=== PATIENT | male | born 1945 | race Asian ===

== ENCOUNTER 2019-12-31 06:39 | Day surgery (SDC) | payer OTHER ==
[2019-12-30 10:04] VITALS: BMI 21.4
[2019-12-31] MEDS ORDERED: LIDOCAINE 1% P/F 10 MG/ML VIAL ONE (07:16)
[2019-12-31] MEDS ORDERED: TETRACAINE 0.5% OPHTH SOLN 2 ML BOTTLE ONE (07:17)
[2019-12-31] MEDS ORDERED: CARBACHOL 0.01% INTRA-OCULAR 1.5 ML VIAL ONE (07:17)
[2019-12-31] MEDS ORDERED: NEO/POLYMYX B SULF/DEXAMETH OPHTHALMIC 5ML BOTTLE ONE (07:17)
[2019-12-31] MEDS ORDERED: EPINEPHrine/PF 1 MG/1 ML (1:1,000) AMPULE ONE ×2 (07:17→07:28)
[2019-12-31] MEDS ORDERED: BSS (NA/CA/MG/K) BALANCED SALT SOLUTION OPHTH SOLN 15 ML BOTTLE ONE (07:17)
[2019-12-31] MEDS: CIPROFLOXACIN 0.3% EYE DROPS 5 ML BOTTLE ONE ×3 (07:30→07:40)
[2019-12-31] MEDS: PHENYLEPHRINE 2.5% OPHTH SOLN 15 ML BOTTLE ONE ×3 (07:30→07:40)
[2019-12-31] MEDS: TROPICAMIDE 1% OPHTH SOLN 15 ML BOTTLE ONE ×3 (07:30→07:40)
[2019-12-31] MEDS: CYCLOPENTOLATE 2% OPHTH SOLN 2 ML BOTTLE ONE ×3 (07:30→07:40)
[2019-12-31] MEDS ORDERED: MIDAZOLAM HCL 2 MG/2 ML SINGLE DOSE VIAL ONE (07:36)
[2019-12-31] MEDS ORDERED: ONDANSETRON 4 MG/2 ML VIAL ONE (08:13)
[2019-12-31 08:57] VITALS: TEMP 98
[2019-12-31 10:40] VITALS: BP 103/71; PULSE 64
--- NOTE | 2019-12-31 14:17 | OP ---
DATE OF OPERATION: 12/31/2019 OPERATIVE PROCEDURE: Lens Phacoemulsification with Posterior Chamber Intraocular Lens Placement, Right Eye PREOPERATIVE DIAGNOSIS: Visually Significant Cataract of Right Eye POSTOPERATIVE DIAGNOSIS: Visually Significant Cataract of Right Eye SURGEON: Michael Katz M.D. ANESTHESIA: MAC PROCEDURE: The patient was brought to the operating room and placed under monitored anesthesia care by Anesthesia. A drop of Tetracaine was then placed over the right eye. The patient was then prepped and draped in the usual sterile manner. A speculum was then placed over the right eye. The eye was then well irrigated with copious amounts of BSS (balanced salt solution). The operating microscope was then moved into position. A paracentesis was performed using a 15 degree blade. At this point 0.5 mL of 1% preservative free-lidocaine was injected into the anterior chamber. Amvisc plus was then injected into the anterior chamber. A clear corneal incision was then formed using a 2.2 mm keratome. A capsulorrhexis was then performed in a continuous circular fashion beginning with a cystotome completed with an Utratas forceps. Hydrodissection was then performed using BSS on a cannula. The phaco probe was then introduced through the corneal wound and the cataract was removed using the phaco chop technique. Approximately 3 seconds of absolute phaco time was used. The remaining cortex was then removed using irrigation and aspiration with an I/A probe. The capsule was then filled with regular Amvisc and the capsule was noted to be intact. A previously selected foldable posterior chamber intraocular lens was then injected into the capsule through the corneal wound using a lens injector. It was then dialed into position using a Sinskey hook. The Amvisc was then removed using irrigation and aspiration. Miostat was then injected through the paracentesis to constrict the pupil. The paracentesis and corneal wound were then hydrated and noted to be water tight. A drop of Maxitrol was then placed over the eye. The speculum was removed and clear shield was taped over the eye. The patient tolerated the procedure well and there were no surgical complications. The patient was asked to follow up in my office the next day. MICHAEL KATZ M.D. LUCAS/[id number]
== END 2019-12-31 09:30 | disposition home or self-care (01) ==
LOC: FASU 06:39
PROVIDERS: ATTEND Ophthalmology
PROC: 08RJ3JZ Replacement of Right Lens with Synthetic Substitute, Percutaneous Approach (ICD-10-PCS; principal; 2019-12-31 08:10)
DX: H26.8 Other specified cataract (principal)
CPT/HCPCS: 82962

== ENCOUNTER 2020-02-04 08:25 | Day surgery (SDC) | payer OTHER ==
--- OUTSIDE RECORDS SUMMARY | 2020-01-30 12:47 | XMS ---
:1945 [facility] Care Team Providers Name Role Phone Elsa Jimenez MD Unavailable Unavailable Tram Darden MD Unavailable Unavailable Estevan Rojas DO Unavailable Unavailable Garret Soria MD Unavailable Unavailable Yesenia Stephenson MD Unavailable Unavailable MD Chantelle Unavailable Unavailable Nayely Thorne Unavailable Unavailable MD Yoselin Unavailable Unavailable Re-disclosure Warning The records that you are about to access may contain information from federally- assisted alcohol or drug abuse programs. If such information is present, then the following federally mandated warning applies: This information has been disclosed to you from records protected by federal confidentiality rules (42 CFR part 2). The federal rules prohibit you from making any further disclosure of this information unless further disclosure is expressly permitted by the written consent of the person to whom it pertains or as otherwise permitted by 42 CFR part 2. A general authorization for the release of medical or other information is NOT sufficient for this purpose. The Federal rules restrict any use of the information to criminally investigate or prosecute any alcohol or drug abuse patient.The records that you are about to access may contain highly sensitive health information, the redisclosure of which is protected by Article 27-F of the [facility] Public Health law. If you continue you may haveaccess to information: Regarding HIV / AIDS; Provided by facilities licensed or operated by the [facility] Office of Mental Health; or Provided by the [facility] Office for People With Developmental Disabilities. If such information is present, then the following [facility] mandated warning applies: This information has been disclosed to you from confidential records which are protected by state law. State law prohibits you from making any further disclosure of this information without the specific written consent of the person to whom it pertains, or as otherwise permitted by law. Any unauthorized further disclosure in violation of state law may result in a fine or chcf sentence or both. A general authorization for the release of medical or other information is NOT sufficient authorization for further disclosure. Allergies and Adverse Reactions Type Description Substance Reaction Status Data Source(s ) Drug allergy No Known Allergies No Known NO KNOWN ALLERG [place] [facility]erg[facility] [place] [facility] Encounters Encounter Providers Location Date Indications Data Source(s ) Emergency Attender: Tram 11/03/2019 DIFF BREATHING Diam[facility] Corea Katalina 09:32:00 AM ARR-AUTO Hospital MDConsultant: EDT - Garret Soria MD 11/03/2019 08:05:00 PM EDT DIFF BREATHING ARR-AUTO Patient discharged. Inpatient Attender: China Wyatt 10/24/2019 08:15:00 DIAL YSIS [place] MDAttender: Troy AM EDT - 10/25/2019 Hospital Srulowitz MDAdmitter: 07:39:00 PM EDT China Wyatt MDConsultant: Elsa Jimenez MD DIALYSIS Patient discharged. Outpatient Attender: Pily 02/03/2019 12:33:00 Diamante Stephenson MD PM EDT Hospital Outpatient Attender: Beau 11/27/2018 09:21:00 PLEURAL EFFU INES Diamante Thorne AM EDT Hospital PLEURAL EFFUSION Inpatient Attender: Estevan Rojas 02/28/2018 03:48:00 HYPERKA LEMIA Diam[facility] Corea DOAdmitter: Estevan Rojas PM EST - 03/01/2018 Hospital DOConsultant: Garret 12:24:00 PM CARLOS Soria MD HYPERKALEMIA Medications Medication Brand Start Product Dose Route Administrative [facility] Indications Reaction Description Data Name Date Form Instructions Instructions Source(s) apixaban Apixab 10/24/ TABLET 2.5 ORAL active Whi te 2.5 MG Oral an 2020 mg [place] Tablet 01:13: Hospital [Eliquis] 00 PM Apixaban EDT sevelamer Sevela 10/24/ POWDER 2.4 g ORAL active W christina carbonate jamie 2020 [place] 40 MG/ML Carbon 01:13: Hospita l Oral ate 00 PM Suspension EDT [Renvela] Sevelamer Carbonate apixaban Apixab 07/04/ TABLET 2.5 ORAL active Whi te 2.5 MG Oral an 2020 mg [place] Tablet 01:13: Hospital [[facility]] 00 PM Apixaban EDT Diphenhydra Diphen 07/04/ CAPSULE 25 mg ORAL active [facility] [place] hydram 2020 [place] Hydrochlori ine 01:13: Hospit al de 25 MG Hcl 00 PM Oral EDT Capsule [Benadryl] Diphenhydra mine Hcl cetirizine Cetiri 07/04/ TABLET 10 mg ORAL active White hydrochlori zine 2020 [place] de 10 MG Hcl 01:13: Hospital Oral Tablet 00 PM Cetirizine EDT Hcl Diphenhydra Diphen 07/04/ CAPSULE 25 mg ORAL active [facility] mine hydram 2020 [place] Hydrochlori ine 01:13: Hospit al de 25 MG Hcl 00 PM Oral EDT Capsule [Benadryl] Diphenhydra mine Hcl cetirizine Cetiri 07/04/ TABLET 10 mg ORAL active White hydrochlori zine 2020 [place] de 10 MG Hcl 01:13: Hospital Oral Tablet 00 PM Cetirizine EDT Hcl sitagliptin Sitagl // TABLET 25 mg ORAL active White 50 MG Oral iptin 2020 [place] Tablet Phosph 01:13: Hospital [[facility]] ate 00 PM Sitagliptin EDT Phosphate sevelamer Sevela 07// POWDER 2.4 g ORAL active W christina carbonate jamie 2020 [place] 40 MG/ML Carbon 01:13: Hospita l Oral ate 00 PM Suspension EDT [Renvela] Sevelamer Carbonate pantoprazol Pantop 06/14/ TABLET 40 mg ORAL complet White e 40 MG razole 2019 ed [place] Delayed Sodium 12:28: Hospital Release 00 PM Oral Tablet EDT [Protonix] Pantoprazol e Sodium pantoprazol Pantop 06/14/ TABLET 40 mg ORAL complet White e 40 MG razole 2019 ed [place] Delayed Sodium 12:28: Hospital Release 00 PM Oral Tablet EDT [Protonix] Pantoprazol e Sodium apixaban 5 Apixab TABLET complet Wh ite MG Oral an ed [place] [facility] Apixaban apixaban 5 Apixab TABLET complet Wh ite MG Oral an ed [place] Tablet Hospital [Eliquis] Apixaban sitagliptin Sitagl TABLET 50 mg ORAL complet White 50 MG Oral iptin ed [place] Tablet Phosph Hospital [] ate Sitagliptin Phosphate Kayexcelate complet [facility] Kayexcelate complet [facility] sitagliptin Sitagl TABLET 50 mg ORAL complet White 50 MG Oral iptin ed [place] Tablet Phosph Hospital [] ate Sitagliptin Phosphate Insurance Providers Payer name Policy type Policy ID Covered Covered republican's Policy P carolann / Coverage republican ID relationship to Sanchez Inf ormation type sanchez AETNA [id number] SP [id number] MEDICARE AETNA MCR [id number] PT [id number] AETNA HEALTH 1 [id number] PLANS HIP MONTE [id number] PT [id number] 01 MCARE 1 AETNA [id number] [id number] PT [id number] Problems, Conditions, and Diagnoses Code Display Name Description Problem Type Effective Dates Data Source(s) Z95.5 Presence of coronary Z95.5 Diagnosis 11/03/2019 Whit e [place] angioplasty implant 11:33:00 AM EDT Hospital and graft 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 Diagnosis 11/03/2019 [place] dialysis 11:33:00 AM EDT Hospital 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 Diagnosis 11/03/2019 [place] use of oral 11:33:00 AM EDT Hospital hypoglycemic drugs Z79.01 harness puller (current) Z79.01 Diagnosis 11/03/2019 [place] use of anticoagulants 11:33:00 AM ED T Hospital Z95.0 Presence of cardiac Z95.0 Diagnosis 11/03/2019 [place] pacemaker 11:33:00 AM EDT Hospital 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 11/03/2019 Whi te [place] disease of [place] 11:33:00 AM EDT Ho spital coronary artery without angina pectoris E11.22 Type 2 diabetes E11.22 Diagnosis 11/03/2019 [place] mellitus with diabetic 11:33:00 AM E DT Hospital chronic kidney disease E78.5 Hyperlipidemia, E78.5 Diagnosis 11/03/2019 [place] unspecified 11:33:00 AM EDT Hospital J44.9 Chronic obstructive J44.9 Diagnosis 11/03/2019 [place] pulmonary disease, 11:33:00 AM EDT H ospital unspecified N18.6 End stage renal N18.6 Diagnosis 11/03/2019 [place] ins disease 11:33:00 AM EDT Hospital I50.32 Chronic diastolic I50.32 Diagnosis 11/03/2019 [place] (congestive) heart 11:33:00 AM EDT H ospital failure I13.2 Hypertensive heart and I13.2 Diagnosis 11/03/2019 Wh ite [place] chronic kidney disease 11:33:00 AM E DT Hospital with heart failure and with stage 5 chronic kidney disease, or end stage renal disease J90 Pleural effusion, not J90 Diagnosis 11/03/2019 Whi te [place] elsewhere classified 11:33:00 AM EDT Hospital Z11.59 Encounter for Z11.59 Diagnosis 11/03/2019 [place] screening for other 11:33:00 AM EDT Hospital viral diseases J96.01 Acute respiratory J96.01 Diagnosis 11/03/2019 [place] failure with hypoxia 11:33:00 AM EDT Hospital R21 Rash and other R21 Diagnosis 10/24/2019 [place] nonspecific skin 11:45:00 AM EDT Hos pital eruption E87.5 Hyperkalemia E87.5 Diagnosis 10/24/2019 [place] 11:45:00 AM EDT Hospital Surgeries/Procedures Procedure Description Date Indications Data Source(s) Computed tomography of chest 11/03/2019 [place] without contrast 12:00:00 AM Hospital EDT Plain chest X-ray (procedure) 11/03/2019 [place] 12:00:00 AM Hospital EDT Oxygen therapy (procedure) 11/03/2019 W christina [place] 12:00:00 AM Hospital EDT Electrocardiographic procedure 11/03/2019 [place] (procedure) 12:00:00 AM Hospital EDT Electrocardiographic procedure 10/24/2019 [place] (procedure) 12:00:00 AM Hospital EDT PERFORMANCE OF URINARY 10/24/2019 [place] FILTRATION, <6 HRS/DAY 12:00:00 AM Hospi nicki EDT Electrocardiographic procedure 10/24/2019 [place] (procedure) 12:00:00 AM Hospital EDT Results ID Date Data Source [id number] 12/27/2019 01:45:00 PM EDT [facility] Name Value Range Interpretation Description Data Sup porting Code Source(s) Document(s ) SARS [facility] coronavirus 2 RNA This lab was ordered by [facility] and reported by [facility]. ID Date Data Source [id number] 11/26/2019 12:00:00 AM EDT [facility] tics Name Value Range Interpretation Code Description Data Natali rce(s) Supporting Document(s ) COV2 [facility] This lab was ordered by [facility] and reported by [facility]. ID Date Data Source [id number] 11/03/2019 10:29:00 AM EDT [facility] Name Value Range Interpretation Description Data Sup porting Code Source(s) Document(s ) Eosinophils/100 5 % [place] leukocytes in [facility] Blood by Manual count ID Date Data Source [id number] 11/03/2019 10:29:00 AM EDT [facility] Name Value Range Interpretation Description Data Sup porting Code Source(s) Document(s ) Monocytes/100 6 % [place] leukocytes in Hospital Blood by Manual count ID Date Data Source [id number] 11/03/2019 10:29:00 AM EDT [facility] Name Value Range Interpretation Description Data Sup porting Code Source(s) Document(s ) Lymphocytes/100 8 % [place] leukocytes in Hospital Blood by Manual count ID Date Data Source [id number] 11/03/2019 10:29:00 AM EDT [facility] Name Value Range Interpretation Description Data Sup porting Code Source(s) Document(s ) Neutrophils/100 79 % [place] leukocytes in [facility] Blood by Manual count ID Date Data Source [id number] 11/03/2019 10:29:00 AM EDT [facility] Name Value Range Interpretation Description Data Sup porting Code Source(s) Document(s ) Platelet mean 11.7 fL [place] volume Hospital [Entitic volume] in Blood by Automated count ID Date Data Source [id number] 11/03/2019 10:29:00 AM EDT [facility] Value Range Interpretation Description Data Sup porting Code Source(s) Document(s ) Platelets 90 [place] [#/volume] in 10*3/uL Hospital Blood by Automated count ID Date Data Source [id number] 11/03/2019 10:29:00 AM EDT [facility] Value Range Interpretation Description Data Sup porting Code Source(s) Document(s ) Erythrocyte 13.8 % [place] distribution Hospital width [Ratio] by Automated count ID Date Data Source [id number] 11/03/2019 10:29:00 AM EDT [facility] Value Range Interpretation Description Data Sup porting Code Source(s) Document(s ) Erythrocyte mean 31.7 [place] corpuscular g/dL Hospital hemoglobin concentration [Mass/volume] by Automated count ID Date Data Source [id number] 11/03/2019 [facility] Interpretation Description Data Sup porting Code Source(s) Document(s ) Erythrocyte 31.9 pg [facility] corpuscular hemoglobin [Entitic mass] by Automated count ID Date Data Source [id number] 11/03/2019 10:29[facility] Value Range Interpretation Description Data Sup porting Code Source(s) Document(s ) Erythrocyte 100.7 fL [facility] corpuscular volume [Entitic volume] by Automated count ID Date Data Source [id number] 11/03/2019 10:29:[facility] Value Range Interpretation Description Data Sup porting Code Source(s) Document(s ) Hematocrit 43.5 % [place] [Volume Hospital Fraction] of Blood by Automated count ID Date Data Source [id number] 11/03/2019 10:29:00 AM EDT [facility] Name Value Range Interpretation Description Data Sup porting Code Source(s) Document(s ) Hemoglobin 13.8 g/dL [place] [Mass/volume] Hospital in Blood ID Date Data Source [id number] 11/03/2019 10:29:00 AM EDT [facility] Name Value Range Interpretation Description Data Sup porting Code Source(s) Document(s ) Erythrocytes 4.32 [place] [#/volume] in 10*6/uL Hospital Blood by Automated count ID Date Data Source [id number] 11/03/2019 10:29:00 AM EDT [facility] Name Value Range Interpretation Description Data Sup porting Code Source(s) Document(s ) Leukocytes 7.6 [place] [#/volume] in 10*3/uL Hospital Blood by Automated count ID Date Data Source [id number] 11/03/2019 10:29:00 AM EDT [facility] Value Range Interpretation Description Data Sup porting Code Source(s) Document(s ) Natriuretic 1745.3 [place] peptide B pg/mL Hospital [Mass/volume] in Serum or Plasma ID Date Data Source [id number] 11/03/2019 10:29:00 AM [facility] TEST PERFORMED BY [facility]ENS[facility] CHEMILUMINESCENCE METHOD. Name Value Range Interpretation Description Data Sup porting Code Source(s) Document(s ) Troponin 0.37 [place] I.cardiac ng/mL Hospital [Mass/volume ] in Serum or Plasma ID Date Data Source [id number] 11/03/2019 10:29:00 AM EDT [facility] Name Value Range Interpretation Description Data Sup porting Code Source(s) Document(s ) Creatine 163 U/L [place] kinase Hospital [Enzymatic activity/volu me] in Serum or Plasma ID Date Data Source [id number] 11/03/2019 10:29:00 AM EDT [facility] Name Value Range Interpretation Description Data Sup porting Code Source(s) Document(s ) Aspartate 29 U/L [facility] aminotransferase [place] [Enzymatic Hospital activity/volume] in Serum or Plasma ID Date Data Source [id number] 11/03/2019 10:29:00 AM EDT [facility] Name Value Range Interpretation Description Data Sup porting Code Source(s) Document(s ) Alanine 18 U/L [place] aminotransferase [place] [Enzymatic Hospital activity/volume] in Serum or Plasma ID Date Data Source [id number] 11/03/2019 10:29:00 AM EDT [facility] Value Range Interpretation Description Data Sup porting Code Source(s) Document(s ) Alkaline 104 U/L [place] phosphatase Hospital [Enzymatic activity/volume ] in Serum or Plasma ID Date Data Source [id number] 11/03/2019 10:29[facility] Value Range Interpretation Description Data Sup porting Code Source(s) Document(s ) Bilirubin.t 0.8 mg/dL [facility] [Mass/volum e] in Serum or Plasma ID Date Data Source [id number] 11/03/2019 10:29:[facility] Value Range Interpretation Code Description Data Natali rce(s) Supporting Document(s ) Albumin/Glob 2.0 [place] ulin [Mass Hospital Ratio] in Serum or Plasma ID Date Data Source [id number] 11/03/2019 10:29:[facility] Value Range Interpretation Description Data Sup porting Code Source(s) Document(s ) Albumin 4.3 g/dL [place] [Mass/volume Hospital ] in Serum or Plasma ID Date Data Source [id number] 11/03/2019 10:29:00 AM EDT [facility] Name Value Range Interpretation Description Data Sup porting Code Source(s) Document(s ) Protein 6.5 g/dL [place] [Mass/volume Hospital ] in Serum or Plasma ID Date Data Source [id number] [facility]/03[facility] Interpretation Description Data Sup porting Code Source(s) Document(s ) Calcium 7.5 mg/dL [place] [Mass/volume Hospital ] in Serum or Plasma ID Date Data Source [id number] 11/03/2019 10:29:00 AM EDT [facility] Name Value Range Interpretation Code Description Data Natali rce(s) Supporting Document(s ) Urea 8.7 [place] nitrogen/Cre Hospital atinine [Mass Ratio] in Serum or Plasma ID Date Data Source [id number] 11/03/2019 10:29:00 AM [facility] NOTIFICATION AND READ BACK OF CRITICAL R ESULTS TO PC CARLOS INMAN AT 1118 ON 11/03/19 BY Tal Vela.REPORTED CRITICA L VALUES SHOULD BE INTERPRETED WITHIN CLINICAL CONTEXT. Name Value Range Interpretation Description Data Sup porting Code Source(s) Document(s ) Creatinine 8.2 mg/dL [place] [Mass/volume] Hospital in Serum or Plasma ID Date Data Source [id number] 11/03/2019 [facility] Name Value Range Interpretation Description Data Sup porting Code Source(s) Document(s ) Urea 71 mg/dL [place] nitrogen Hospital [Mass/volume ] in Serum or Plasma ID Date Data Source [id number] 11/03/2019 10:29:00 AM EDT [facility] Name Value Range Interpretation Code Description Data Natali rce(s) Supporting Document(s ) Anion gap in 19 [place] Serum or [facility] Plasma ID Date Data Source [id number] 11/03/2019 10:29:00 AM EDT [facility] Name Value Range Interpretation Description Data Sup porting Code Source(s) Document(s ) Carbon 28 mmol/L [place] dioxide, Hospital total [Moles/volu me] in Serum or Plasma ID Date Data Source [id number] 11/03/2019 10:29:00 AM EDT [facility] Name Value Range Interpretation Description Data Sup porting Code Source(s) Document(s ) Chloride 96 mmol/L [place] [Moles/volum Hospital e] in Serum or Plasma ID Date Data Source [id number] 11/03/2019 10:29:00 AM EDT [facility] MODERATE HEMOLYSIS Name Value Range Interpretation Description Data Sup porting Code Source(s) Document(s ) Potassium 5.1 [place] [Moles/volume mmol/L Hospital ] in Serum or Plasma ID Date Data Source [id number] 11/03/2019 10:29:00 AM EDT [facility] Name Value Range Interpretation Description Data Sup porting Code Source(s) Document(s ) Sodium 138 mmol/L [place] [Moles/volu Hospital me] in Serum or Plasma ID Date Data Source [id number] 11/03/2019 10:29:00 AM EDT [facility] Name Value Range Interpretation Description Data Sup porting Code Source(s) Document(s ) Glucose 151 mg/dL [place] [Mass/volume Hospital ] in Serum or Plasma ID Date Data Source [id number] 11/03/2019 10[facility] TH[facility]IC RANGES:UNFRACTIONATED HEPARI N THERAPY: 60-90 SECONDSARGATROBAN THERAPY: 49-99 SECONDS Name Value Range Interpretation Description Data Sup porting Code Source(s) Document(s ) aPTT in 33.8 s [place] Platelet poor [facility] plasma by Coagulation assay ID Date Data Source [id number] 11/03/2019 10:29:00 AM EDT [facility] THERAPEUTIC RANGE FOR STANDARD ORALANTIC OAGULANT THERAPY: 2.0-3.0THERAPEUTIC RANGE FOR HIGH DOSE ORALANTICOAGULANT THERAPY (MECHANICAL HEARTVALVE REPLACEMENT): 2.5-3.5 Name Value Range Interpretation Description Data Sup porting Code Source(s) Document(s ) INR in Platelet 1.3 [place] poor plasma by [facility] Coagulation assay ID Date Data Source [id number] 11/03/2019 10:29:00 AM EDT [facility] Name Value Range Interpretation Description Data Sup porting Code Source(s) Document(s ) PT panel - 15.1 s [place] Platelet poor [facility] plasma by Coagulation assay ID Date Data Source [id number] 11/03/2019 10:29:00 AM EDT [facility] Name Value Range Interpretation Code Description Data Supporting Source(s) Document(s ) NUCLEATED RBCS 0.0 % [place] (AUTO Hospital DIFF%)DIS ID Date Data Source [id number] 11/03/2019 10:29:00 AM EDT [facility] Name Value Range Interpretation Description Data Sup porting Code Source(s) Document(s ) Differential MANUAL [place] cell count Hospital method - Blood ID Date Data Source [id number] 11/03/2019 10:29:00 AM EDT [facility] Name Value Range Interpretation Code Description Data Natali rce(s) Supporting Document(s ) Cells 100 [facility] Hospital Total [#] in Blood ID Date Data Source [id number] 11/03/2019 10:29:00 AM EDT [facility] PLT ESTIMATE DECREASED Name Value Range Interpretation Description Data Sup porting Code Source(s) Document(s ) PLATELET PRESENT [facility] Hospital ID Date Data Source [id number] 11/03/2019 10:29:00 AM EDT [facility] Name Value Range Interpretation Code Description Data Natali rce(s) Supporting Document(s ) MACROCYTOSIS OCC [facility] ID Date Data Source [id number] 11/03/2019 10:29:00 AM EDT [facility] Name Value Range Interpretation Description Data Sup porting Code Source(s) Document(s ) Basophils 0.15 [place] [#/volume] in 10*3/uL Hospital Blood by Manual count ID Date Data Source [id number] 11/03/2019 10:29:00 AM EDT [facility] Name Value Range Interpretation Description Data Sup porting Code Source(s) Document(s ) Eosinophils 0.38 [place] [#/volume] in 10*3/uL Hospital Blood by Manual count ID Date Data Source [id number] 11/03/2019 10:29:00 AM EDT [facility] Value Range Interpretation Description Data Sup porting Code Source(s) Document(s ) Monocytes 0.46 [place] [#/volume] in 10*3/uL Hospital Blood by Manual count ID Date Data Source [id number] 11/03/2019 10:29:00 AM EDT [facility] Name Value Range Interpretation Description Data Sup porting Code Source(s) Document(s ) Lymphocytes 0.61 [place] [#/volume] in 10*3/uL Hospital Blood by Manual count ID Date Data Source [id number] 11/03/2019 10:29:00 AM EDT [facility] Name Value Range Interpretation Description Data Sup porting Code Source(s) Document(s ) Neutrophils 6.00 [place] [#/volume] in 10*3/uL Hospital Blood by Manual count ID Date Data Source [id number] 11/03/2019 [facility] Name Value Range Interpretation Description Data Sup porting Code Source(s) Document(s ) Basophils/100 2 % [place] leukocytes in Hospital Blood by Manual count ID Date Data Source [id number] 10/25/2019 04:34:00 PM [facility] Ethnoarchaeology Professor:ANDRZEJ SUNG Name Value Range Interpretation Description Data Sup porting Code Source(s) Document(s ) Glucose 87 mg/dL [facility] [Mass/volume[facility] in Capillary blood by Glucometer ID Date Data Source [id number] 10/25/2019 04:34:00 PM [facility] Ethnoarchaeology Professor:ANDRZEJ SUNG Name Value Range Interpretation Description Data Sup porting Code Source(s) Document(s ) Glucose 87 mg/dL [facility]Mass[facility] in Capillary blood by Glucometer ID Date Data Source [id number] 10/25/2019 06:27:00 AM [facility] Name Value Range Interpretation Description Data Sup porting Code Source(s) Document(s ) Calcium 8.6 mg/dL [facility] [Mass/volume Hospital ] in Serum or Plasma ID Date Data Source [id number] [facility] Interpretation Code Description Data Natali rce(s) Supporting Document(s ) Urea 7.5 [facility] nitrogen/Cre Hospital atinine [Mass Ratio] in Serum or Plasma ID Date Data Source [id number] 10/25/2019 06:27:00 AM [facility] NOTIFICATION AND READ BACK OF CRITICAL R ESULTS TO GISELLE KURTZRN 5I AT 0708 ON 10/25/19 BY DELROY IBARRA.REPORTED CRI TICAL VALUES SHOULD BE INTERPRETED WITHIN CLINICAL CONTEXT. Name Value Range Interpretation Description Data Sup porting Code Source(s) Document(s ) Creatinine 8.0 mg/dL [facility] in Serum or Plasma ID Date Data Source [id number] 10/25/2019 06:27:00 AM [facility] Name Value Range Interpretation Description Data Sup porting Code Source(s) Document(s ) Urea 60 mg/dL [facility] nitrogen Hospital [Mass/volume ] in Serum or Plasma ID Date Data Source [id number] 10/25/2019 06:27:00 AM [facility] Name Value Range Interpretation Code Description Data Natali rce(s) Supporting Document(s ) Anion gap in 17 [facility] Serum or [facility] Plasma ID Date Data Source [id number] 10/25/2019 06:27:00 AM [facility] Name Value Range Interpretation Description Data Sup porting Code Source(s) Document(s ) Carbon 27 mmol/L [facility] dioxide, Hospital total [Moles/volu me] in Serum or Plasma ID Date Data Source [id number] 10/25/2019 06:27:00 AM [facility] Name Value Range Interpretation Description Data Sup porting Code Source(s) Document(s ) Chloride 96 mmol/L [facility] [Moles/volum Hospital e] in Serum or Plasma ID Date Data Source [id number] 10/25/2019 06:27:00 AM [facility] SLIGHT HEMOLYSIS Name Value Range Interpretation Description Data Sup porting Code Source(s) Document(s ) Potassium 5.7 [facility] [Moles/volume mmol/L Hospital ] in Serum or Plasma ID Date Data Source [id number] 10/25/2019 06:27:00 AM EDT [facility] Name Value Range Interpretation Description Data Sup porting Code Source(s) Document(s ) Sodium 134 mmol/L [facility] [Moles/volu Hospital ga] in Serum or Plasma ID Date Data Source [id number] 10/25/2019 06:27:00 AM EDT [facility] Value Range Interpretation Description Data Sup porting Code Source(s) Document(s ) Glucose 89 mg/dL [facility] [Mass/volume Hospital ] in Serum or Plasma ID Date Data Source [id number] 10/25/2019 06:27:00 AM EDT [facility] Value Range Interpretation Description Data Sup porting Code Source(s) Document(s ) Platelet mean 12.2 fL [facility] [Entitic volume] in Blood by Automated count ID Date Data Source [id number] 10/25/2019 06:27:00 AM EDT [facility] Value Range Interpretation Description Data Sup porting Code Source(s) Document(s ) Platelets 57 [facility] [#/volume] in 10*3/uL Hospital Blood by Automated count ID Date Data Source [id number] 10/25/2019 06:27:00 AM EDT [facility] Value Range Interpretation Description Data Sup porting Code Source(s) Document(s ) Erythrocyte 12.7 % [facility] width [Ratio] by Automated count ID Date Data Source [id number] 10/25/2019 06:27:00 AM EDT [facility] Value Range Interpretation Description Data Sup porting Code Source(s) Document(s ) Erythrocyte mean 34.1 [facility] corpuscular g/dL Hospital hemoglobin concentration [Mass/volume] by Automated count ID Date Data Source [id number] 10/25/2019 06:27:00 AM EDT [facility] Value Range Interpretation Description Data Sup porting Code Source(s) Document(s ) Erythrocyte 31.7 pg [facility] corpuscular hemoglobin [Entitic mass] by Automated count ID Date Data Source [id number] 10/25[facility]2019 [facility] Interpretation Description Data Sup porting Code Source(s) Document(s ) Erythrocyte 92.9 fL [facility] corpuscular volume [Entitic volume] by Automated count ID Date Data Source [id number] 10/25/2019 06:27:00 AM [facility] Value Range Interpretation Description Data Sup porting Code Source(s) Document(s ) Hematocrit 46.1 % [facility] [Volume Hospital Fraction] of Blood by Automated count ID Date Data Source [id number] 10/25/2019 06:27:00 AM [facility] Value Range Interpretation Description Data Sup porting Code Source(s) Document(s ) Hemoglobin 15.7 g/dL [facility] [Mass/volume] [facility] in Blood ID Date Data Source [id number] 10/25/2019 06:27:00 AM [facility] Value Range Interpretation Description Data Sup porting Code Source(s) Document(s ) Erythrocytes 4.96 [facility] [#/volume] in 10*6/uL Hospital Blood by Automated count ID Date Data Source [id number] 10/25/2019 06:27:00 AM [facility] Value Range Interpretation Description Data Sup porting Code Source(s) Document(s ) Leukocytes 3.9 [facility] [#/volume] in 10*3/uL Hospital Blood by Automated count ID Date Data Source [id number] 10/24/2019 [facility] THERAPEUTIC RANGE FOR STANDARD ORALANTIC OAGULANT THERAPY: 2.0-3.0THERAPEUTIC RANGE FOR HIGH DOSE ORALANTICOAGULANT THERAPY (MECHANICAL HEARTVALVE REPLACEMENT): 2.5-3.5 Name Value Range Interpretation Description Data Sup porting Code Source(s) Document(s ) INR in Platelet 1.0 [facility] poor plasma by Hospital Coagulation assay ID Date Data Source [id number] 10/24/2019 02:15:00 PM EDT [facility] Name Value Range Interpretation Description Data Sup porting Code Source(s) Document(s ) PT panel - 11.9 s [facility] Platelet poor [facility] plasma by Coagulation assay ID Date Data Source [id number] 10/24/2019 11:39:00 AM [facility] Name Value Range Interpretation Description Data Sup porting Code Source(s) Document(s ) Hepatitis C NON-REACT [facility] virus Ab [facility] [Presence] in Serum ID Date Data Source [id number] 10/24/2019 11:39:00 AM [facility] Name Value Range Interpretation Description Data Sup porting Code Source(s) Document(s ) Hepatitis B NON-REACT [facility] virus core Ab [facility] [Presence] in Serum ID Date Data Source [id number] 10/24/2019 11:39:00 AM [facility] Name Value Range Interpretation Description Data Sup porting Code Source(s) Document(s ) Hepatitis A NON-REACT [facility] virus IgM Ab [facility] [Presence] in Serum ID Date Data Source [id number] 10/24/2019 11:39:00 AM [facility] Name Value Range Interpretation Description Data Sup porting Code Source(s) Document(s ) Hepatitis C NON-REACT [facility] virus Ab [facility] [Presence] in Serum ID Date Data Source [id number] 10/24/2019 11:39:00 AM EDT [facility] Name Value Range Interpretation Description Data Sup porting Code Source(s) Document(s ) Hepatitis B NON-REACT [facility] virus core Ab [facility] [Presence] in Serum ID Date Data Source [id number] 10/24/2019 11:39:00 AM EDT [facility] Name Value Range Interpretation Description Data Sup porting Code Source(s) Document(s ) Hepatitis A NON-REACT [facility] virus IgM Ab [facility] [Presence] in Serum ID Date Data Source [id number] 10/24/2019 11:39:00 AM EDT [facility] Name Value Range Interpretation Description Data Sup porting Code Source(s) Document(s ) Hepatitis A REACTIVE [facility] virus Ab Hospital [Presence] in Serum ID Date Data Source [id number] 10/24/2019 11:39:00 AM EDT [facility] Name Value Range Interpretation Description Data Sup porting Code Source(s) Document(s ) Hepatitis B NON-REACT [facility] virus surface [facility] Ab [Presence] in Serum ID Date Data Source [id number] 10/24/2019 11:39:00 AM EDT [facility] Name Value Range Interpretation Description Data Sup porting Code Source(s) Document(s ) Hepatitis B NON-REACT [facility] virus surface [facility] Ag [Presence] in Serum ID Date Data Source [id number] 10/24/2019 11:39:00 AM EDT [facility] Name Value Range Interpretation Description Data Sup porting Code Source(s) Document(s ) Aspartate 33 U/L [facility] aminotransferase [place] [Enzymatic Hospital activity/volume] in Serum or Plasma ID Date Data Source [id number] 10/24/2019 11:39:00 AM EDT [facility] Name Value Range Interpretation Description Data Sup porting Code Source(s) Document(s ) Alanine 17 U/L [place] aminotransferase [place] [Enzymatic Hospital activity/volume] in Serum or Plasma ID Date Data Source [id number] 10/24/2019 11:39:00 AM EDT [facility] Name Value Range Interpretation Description Data Sup porting Code Source(s) Document(s ) Alkaline 112 U/L [facility] phosphatase Hospital [Enzymatic activity/volume ] in Serum or Plasma ID Date Data Source [id number] 10/24/2019 [facility] Name Value Range Interpretation Description Data Sup porting Code Source(s) Document(s ) Bilirubin.t 0.6 mg/dL [facility] [Mass/volum e] in Serum or Plasma ID Date Data Source [id number] 10/24/2019 [facility]:39[facility] Name Value Range Interpretation Code Description Data Natali rce(s) Supporting Document(s ) [facility] or Plasma ID Date Data Source [id number] 10/24/2019 11:39:00 AM [facility] Name Value Range Interpretation Description Data Sup porting Code Source(s) Document(s ) Albumin 4.6 g/dL [facility] [Mass/volume Hospital ] in Serum or Plasma ID Date Data Source [id number] 10/24/2019 [facility]:39[facility] Name Value Range Interpretation Description Data Sup porting Code Source(s) Document(s ) Protein 7.1 g/dL [facility] [Mass/volume Hospital ] in Serum or Plasma ID Date Data Source [id number] 10/24/2019 11:39:00 AM EDT [facility] Name Value Range Interpretation Code Description Data Supporting Source(s) Document(s ) NUCLEATED RBCS 0.0 % [facility] (AUTO Hospital DIFF%)DIS ID Date Data Source [id number] 10/24/2019 11:39:00 AM EDT [facility] Name Value Range Interpretation Description Data Sup porting Code Source(s) Document(s ) Differential MANUAL [facility] cell count [facility] method - Blood ID Date Data Source [id number] 10/24/2019 [facility] Name Value Range Interpretation Code Description Data Natali rce(s) Supporting Document(s ) Cells 100 [facility] Total [#] in Blood ID Date Data Source [id number] 10/24/2019 [facility]:39[facility]T ESTIMATE DECREASED Name Value Range Interpretation Description Data Sup porting Code Source(s) Document(s ) PLATELET PRESENT [facility] Hospital ID Date Data Source [id number] 10/24/2019 [facility]39[facility] Name Value Range Interpretation Code Description Data Natali rce(s) Supporting Document(s ) TARGET CELLS [facility] ID Date Data Source [id number] 10/24/2019 [facility]:39[facility] Name Value Range Interpretation Code Description Data Supporting Source(s) Document(s ) POLYCHROMASIA [facility] ID Date Data Source [id number] 10/24/2019 11:39:00 AM [facility] Name Value Range Interpretation Description Data Sup porting Code Source(s) Document(s ) Eosinophils 0.21 [facility] [#/volume] in 10*3/uL Hospital Blood by Manual count ID Date Data Source [id number] 10/24/2019 11:39:00 AM EDT [facility] Name Value Range Interpretation Description Data Sup porting Code Source(s) Document(s ) Monocytes 0.42 [facility] [#/volume] in 10*3/uL Hospital Blood by Manual count ID Date Data Source [id number] 10/24/2019 11:39:00 AM EDT [facility] Name Value Range Interpretation Description Data Sup porting Code Source(s) Document(s ) Lymphocytes 0.62 [facility] [#/volume] in 10*3/uL Hospital Blood by Manual count ID Date Data Source [id number] 10/24/2019 11:39:00 AM EDT [facility] Value Range Interpretation Description Data Sup porting Code Source(s) Document(s ) Neutrophils 3.95 [facility] [#/volume] in 10*3/uL Hospital Blood by Manual count ID Date Data Source [id number] 10/24/2019 11:39:00 AM EDT [facility] Value Range Interpretation Description Data Sup porting Code Source(s) Document(s ) Eosinophils/100 4 % [facility] leukocytes in Hospital Blood by Manual count ID Date Data Source [id number] 10/24/2019 11:39:00 AM EDT [facility] Value Range Interpretation Description Data Sup porting Code Source(s) Document(s ) Monocytes/100 8 % [facility] leukocytes in Hospital Blood by Manual count ID Date Data Source [id number] 10/24/2019 11:39:00 AM EDT [facility] Value Range Interpretation Description Data Sup porting Code Source(s) Document(s ) Lymphocytes/100 12 % [facility] leukocytes in Hospital Blood by Manual count ID Date Data Source [id number] 10/24/2019 11:39:00 AM EDT [facility] Value Range Interpretation Description Data Sup porting Code Source(s) Document(s ) Neutrophils/100 76 % [facility] leukocytes in Hospital Blood by Manual count ID Date Data Source [id number] 10/24/2019 11:39:00 AM EDT [facility] Name Value Range Interpretation Description Data Sup porting Code Source(s) Document(s ) Hepatitis A REACTIVE [facility] virus Ab Hospital [Presence] in Serum ID Date Data Source [id number] 10/24/2019 11:39:00 AM EDT [facility] Name Value Range Interpretation Description Data Sup porting Code Source(s) Document(s ) Hepatitis B NON-REACT [facility] virus surface [facility] Ab [Presence] in Serum ID Date Data Source [id number] 10/24/2019 11:39:00 AM EDT [facility] Name Value Range Interpretation Description Data Sup porting Code Source(s) Document(s ) Hepatitis B NON-REACT [facility] virus surface [facility] Ag [Presence] in Serum ID Date Data Source [id number] 10/24/2019 11:39:00 AM EDT [facility] Name Value Range Interpretation Code Description Data Natali rce(s) Supporting Document(s ) TARGET CELLS [facility] ID Date Data Source [id number] 10/24/2019 11:39:00 AM EDT [facility] Name Value Range Interpretation Code Description Data Supporting Source(s) Document(s ) POLYCHROMASIA [facility] Procedure Social History Code Duration Value Status Description Data Source(s ) Smoking 11/03/2019 Never smoked completed Never smoked [facility] ns 10:02:00 AM EDT tobacco tobacco (finding) [facility] (finding) Smoking 10/24/2019 Ex-smoker completed Ex-smoker (finding) [facility] 05:58:00 PM EDT (finding) Hospital Vital Signs ID Date Data Source UNK Name Value Range Interpretation Code Description Data Source(s) Diastolic blood 62 mm[Hg] 62 mm[Hg] [facility] ins pressure Hospital Systolic blood 119 mm[Hg] 119 mm[Hg] [facility] ns pressure Hospital Respiratory rate 24 /min 24 /min [facility] Heart rate 60 /min 60 /min [facility] Body temperature 36.91649 36.12792 [facility] Body temperature 98.2 [degF] 98.2 [degF] [facility] Body mass index 24.0 kg/m2 24.0 kg/m2 [facility] ins (BMI) [Ratio] Hospital Body weight 165.35 165.35 [lb_av] [place] [facility] [lb_av] Hospital Diastolic blood 52 mm[Hg] 52 mm[Hg] [facility] Hospital Systolic blood 118 mm[Hg] 118 mm[Hg] [facility] Hospital Respiratory rate 20 /min 20 /min [facility] Heart rate 66 /min 66 /min [facility] Body temperature 36.65609 36.57854 [facility] Body temperature 97.0 [degF] 97.0 [degF] [facility] Body mass index 20.0 kg/m2 20.0 kg/m2 [facility] ins (BMI) [Ratio] Hospital Body weight 138.89 138.89 [lb_av] [facility] ins [lb_av] Hospital
[2020-02-02 14:57] VITALS: BMI 21.4
--- OUTSIDE RECORDS SUMMARY | 2020-02-04 08:30 | XMS ---
:1945 Author Organization [facility] Care Team Providers Name Role Phone Elsa Jimenez MD Unavailable Unavailable Tram Darden MD Unavailable Unavailable Estevan Rojas DO Unavailable Unavailable Garret Soria MD Unavailable Unavailable Yesenia Stephenson MD Unavailable Unavailable MD Chantelle Unavailable Unavailable MD Yoselin Unavailable Unavailable Re-disclosure [...] is protected by Article 27-F of the [facility] Public Health law. If you continue you may haveaccess to information: Regarding HIV / AIDS; Provided by facilities licensed or operated by the [facility] Office of Mental Health; or Provided by the [facility] Office for People With Developmental Disabilities. If such information is present, then the following [facility] mandated warning applies: This information has been [...] law may result in a fine or snf sentence or both. A general authorization for the release of medical or other information is NOT sufficient authorization for further disclosure. Allergies and Adverse Reactions Type Description Substance Reaction Status Data Source(s ) Drug allergy No Known Allergies No Known NO KNOWN ALLERG [place] Allergies [place] Hospital Encounters Encounter Providers Location Date Indications Data Source(s ) Emergency Attender: Tram 11/03/2019 DIFF BREATHING [facility] Mengo 09:32:00 AM [facility] MDConsultant: EDT - Garret Soria MD 11/03/2019 08:05:00 PM EDT DIFF BREATHING [facility] Patient discharged. Inpatient Attender: China Wyatt 10/24/2019 08:15:00 DIAL YSIS Diamante Corea MDAttender: Troy AM EDT - 10/25/2019 [facility] Srulowitz MDAdmitter: 07:39:00 [facility] Elsa Jimenez MD DIALYSIS Patient discharged. Outpatient Attender: Pily 02/03/2019 12:33:00 Diamante Stephenson MD EDT Hospital Inpatient Attender: Estevan Rojas 02/28/2018 03:48:00 HYPERKA MAISHA Corea DOAdmitter: Estevan VIERA EST - 03/01/2018 [facility] DOConsultant: 12:24:00 PM CARLOS Soria MD HYPERKALEMIA Medications Medication Brand Start Product Dose Route Administrative Pharmacy [facility] Indications Reaction Description Data Name Date Form Instructions Instructions Source(s) apixaban Apixab 10/24/ TABLET 2.5 ORAL active Whi te 2.5 MG Oral an 2020 mg [place] Tablet 01:13: Hospital [Eliquis] 00 PM Apixaban EDT sevelamer Sevela 10/24/ POWDER 2.4 g ORAL active [facility] christina carbonate jamie 2020 [place] 40 MG/ML Carbon 01:13: Hospita l Oral ate 00 PM Suspension EDT [Renvela] Sevelamer Carbonate apixaban Apixab / TABLET 2.5 ORAL active Whi te 2.5 MG Oral an 2020 mg [place] Tablet 01:13: Hospital [Eliquis] 00 PM Apixaban EDT Diphenhydra Diphen 07/04/ CAPSULE 25 mg ORAL active [facility] hydram 2020 [place] Hydrochlori ine 01:13: Hospit al de 25 MG Hcl 00 PM Oral EDT Capsule [Benadryl] Diphenhydra mine Hcl cetirizine Cetiri 07/ TABLET 10 mg ORAL active [facility] hydrochlori zine 2020 [place] de 10 MG Hcl 01:13: Hospital Oral Tablet 00 PM Cetirizine EDT Hcl Diphenhydra Diphen // CAPSULE 25 mg ORAL active [facility] hydram 2020 [place] Hydrochlori ine 01:13: Hospit al de 25 MG Hcl 00 PM Oral EDT Capsule [Benadryl] Diphenhydra mine Hcl cetirizine Cetiri // TABLET 10 mg ORAL active [facility] hydrochlori zine 2020 [place] de 10 MG Hcl 01:13: Hospital Oral Tablet 00 PM Cetirizine EDT Hcl sitagliptin Sitagl // TABLET 25 mg ORAL active [facility] 50 MG Oral iptin 2020 [place] Tablet Phosph 01:13: Hospital [] ate 00 PM Sitagliptin EDT Phosphate sevelamer Sevela // POWDER 2.4 g ORAL active W christina carbonate jamie 2020 [place] 40 MG/ML Carbon 01:13: Hospita l Oral ate 00 PM Suspension EDT [Renvela] Sevelamer Carbonate pantoprazol Pantop 06/14/ TABLET 40 mg ORAL complet [facility] e 40 MG razole 2018 ed [place] Delayed Sodium 12:28: Hospital Release 00 PM Oral Tablet EDT [Protonix] Pantoprazol e Sodium pantoprazol Pantop 06/14/ TABLET 40 mg ORAL complet White e 40 MG razole 2019 ed [place] Delayed Sodium 12:28: Hospital Release 00 PM Oral Tablet EDT [Protonix] Pantoprazol e Sodium apixaban 5 Apixab TABLET complet Wh ite MG Oral an ed [place] Tablet Hospital [Eliquis] Apixaban apixaban 5 Apixab TABLET complet Wh ite MG Oral an ed [place] Tablet Hospital [Eliquis] Apixaban sitagliptin Sitagl TABLET 50 mg ORAL complet [facility] 50 MG Oral iptin ed [place] Tablet Phosph Hospital [] ate Sitagliptin Phosphate Kayexcelate complet [facility] Kayexcelate complet [facility] sitagliptin Sitagl TABLET 50 mg ORAL complet [facility] [] ate Sitagliptin Phosphate Insurance Providers Payer name Policy type Policy ID Covered Covered libertarian's Policy P carolann / Coverage libertarian ID relationship to Sanchez Inf ormation type sanchez AETNA [id number] SP [id number] MEDICARE AETNA MCR [id number] PT [id number] AETNA HEALTH 1 [id number] PLANS HIP MONTE [id number] PT [id number] 01 MCARE 1 AETNA MCR [id number] PT [id number] Problems, Conditions, and Diagnoses Code Display Name Description Problem Type Effective Dates Data Source(s) Z95.5 Presence of coronary Z95.5 Diagnosis 11/03/2019 [place] angioplasty implant 11:33:00 AM EDT Hospital and graft 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 Diagnosis 11/03/2019 [place] dialysis 11:33:00 AM EDT Hospital 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 Diagnosis 11/03/2019 [place] use of oral 11:33:00 AM EDT Hospital hypoglycemic drugs Z79.01 vermin exterminator (current) Z79.01 Diagnosis 11/03/2019 [place] use of anticoagulants 11:33:00 AM ED T Hospital Z95.0 Presence of cardiac Z95.0 Diagnosis 11/03/2019 [place] pacemaker 11:33:00 AM EDT Hospital 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 11/03/2019 [facility]i te [place] disease of iliamna 11:33:00 AM EDT Ho spital coronary artery without angina pectoris E11.22 Type 2 diabetes E11.22 Diagnosis 11/03/2019 [facility] [place] [facility] mellitus with diabetic 11:33:00 AM E DT Hospital chronic kidney disease E78.5 Hyperlipidemia, E78.5 Diagnosis 11/03/2019 [facility] [place] [facility] unspecified 11:33:00 AM EDT Hospital J44.9 Chronic obstructive J44.9 Diagnosis 11/03/2019 [place] pulmonary disease, 11:33:00 AM EDT H ospital unspecified N18.6 End stage renal N18.6 Diagnosis 11/03/2019 [facility] [place] [facility] disease 11:33:00 AM EDT Hospital I50.32 Chronic diastolic I50.32 Diagnosis 11/03/2019 [place] (congestive) heart 11:33:00 AM EDT H ospital failure I13.2 Hypertensive heart and I13.2 Diagnosis 11/03/2019 Wh ite [place] chronic kidney disease 11:33:00 AM E DT Hospital with heart failure and with stage 5 chronic kidney disease, or end stage renal disease J90 Pleural effusion, not J90 Diagnosis 11/03/2019 [facility] [place] elsewhere classified 11:33:00 AM EDT Hospital Z11.59 Encounter for Z11.59 Diagnosis 11/03/2019 [place] screening for other 11:33:00 AM EDT Hospital viral diseases J96.01 Acute respiratory J96.01 Diagnosis 11/03/2019 [place] failure with hypoxia 11:33:00 AM EDT Hospital R21 Rash and other R21 Diagnosis 10/24/2019 [place] nonspecific skin 11:45:00 AM EDT Hos pital eruption E87.5 Hyperkalemia E87.5 Diagnosis 10/24/2019 [place] 11:45:00 AM EDT Hospital Surgeries/Procedures Procedure Description Date Indications Data Source(s) Computed tomography of chest 11/03/2019 [place] without contrast 12:00:00 AM Hospital EDT Plain chest X-ray (procedure) 11/03/2019 [place] 12:00:00 AM Hospital EDT Oxygen therapy (procedure) 11/03/2019 [facility]ina [place] 12:00:00 AM Hospital EDT Electrocardiographic procedure 11/03/2019 [place] (procedure) 12:00:00 AM Hospital EDT Electrocardiographic procedure 10/24/2019 [place] (procedure) 12:00:00 AM Hospital EDT PERFORMANCE OF URINARY 10/24/2019 [place] FILTRATION, <6 HRS/DAY 12:00:00 AM Hospi nicki EDT Electrocardiographic procedure 10/24/2019 [place] (procedure) 12:00:00 AM Hospital EDT Results ID Date Data Source [id number] 12/27/2019 01:45:00 PM EDT [facility] Name Value Range Interpretation Description Data Sup porting Code Source(s) Document(s ) SARS [facility] coronavirus 2 RNA This lab was ordered by [facility] and reported by [facility]. ID Date Data Source [id number] 11/26/2019 12:00:00 AM EDT [facility] Name Value Range Interpretation Code Description Data Natali rce(s) Supporting Document(s ) COV2 [facility] This lab was ordered by [facility] and reported by [facility]. ID Date Data Source [id number] 11/03/2019 10:29:00 AM EDT Name Value Range Interpretation Description Data Sup porting Code Source(s) Document(s ) Eosinophils/100 5 % [place] leukocytes in Hospital Blood by Manual count ID Date Data Source [id number] 11/03/2019 10:29:00 AM EDT [facility] Value Range Interpretation Description Data Sup porting Code Source(s) Document(s ) Monocytes/100 6 % [place] leukocytes in Hospital Blood by Manual count ID Date Data Source [id number] 11/03/2019 10:29:00 AM EDT [facility] Value Range Interpretation Description Data Sup porting Code Source(s) Document(s ) Lymphocytes/100 8 % [place] leukocytes in Hospital Blood by Manual count ID Date Data Source [id number] 11/03/2019 10:29:00 AM EDT [facility] Value Range Interpretation Description Data Sup porting Code Source(s) Document(s ) Neutrophils/100 79 % [place] leukocytes in Hospital Blood by Manual count ID Date Data Source [id number] 11/03/2019 10:29:00 AM EDT [facility] Value Range Interpretation Description Data Sup porting Code Source(s) Document(s ) Platelet mean 11.7 fL [place] volume Hospital [Entitic volume] in Blood by Automated count ID Date Data Source [id number] 11/03/2019 10:29:00 AM [facility] Value Range Interpretation Description Data Sup porting Code Source(s) Document(s ) Platelets 90 [place] [#/volume] in 10*3/uL Hospital Blood by Automated count ID Date Data Source [id number] 11/03/2019 10:29:00 AM [facility] Value Range Interpretation Description Data Sup porting Code Source(s) Document(s ) Erythrocyte 13.8 % [facility] Hospital width [Ratio] by Automated count ID Date Data Source [id number] 11/03/2019 10:29:00 AM [facility] Value Range Interpretation Description Data Sup porting Code Source(s) Document(s ) Erythrocyte mean 31.7 [place] corpuscular g/dL Hospital hemoglobin concentration [Mass/volume] by Automated count ID Date Data Source [id number] 11/03/2019 10:29:00 AM [facility] Value Range Interpretation Description Data Sup porting Code Source(s) Document(s ) Erythrocyte 31.9 pg [facility] corpuscular hemoglobin [Entitic mass] by Automated count ID Date Data Source [id number] 11/03/2019 10:29:00 AM [facility] Value Range Interpretation Description Data Sup porting Code Source(s) Document(s ) Erythrocyte 100.7 fL [facility] corpuscular volume [Entitic volume] by Automated count ID Date Data Source [id number] 11/03/2019 10:29:00 AM [facility] Value Range Interpretation Description Data Sup porting Code Source(s) Document(s ) Hematocrit 43.5 % [place] [Volume Hospital Fraction] of Blood by Automated count ID Date Data Source [id number] 11/03/2019 10:29:00 AM EDT Name Value Range Interpretation Description Data Sup porting Code Source(s) Document(s ) Hemoglobin 13.8 g/dL [place] [Mass/volume] Hospital in Blood ID Date Data Source [id number] 11/03/2019 10:29:00 AM EDT Name Value Range Interpretation Description Data Sup porting Code Source(s) Document(s ) Erythrocytes 4.32 [place] [#/volume] in 10*6/uL Hospital Blood by Automated count ID Date Data Source [id number] 11/03/2019 10:29:00 AM EDT Name Value Range Interpretation Description Data Sup porting Code Source(s) Document(s ) Leukocytes 7.6 [place] [#/volume] in 10*3/uL Hospital Blood by Automated count ID Date Data Source [id number] 11/03/2019 10:29:00 AM EDT Name Value Range Interpretation Description Data Sup porting Code Source(s) Document(s ) Natriuretic 1745.3 [place] peptide B pg/mL Hospital [Mass/volume] in Serum or Plasma ID Date Data Source [id number] 11/03/2019 10:29:00 AM [facility] TEST PERFORMED BY [employer] UL[employer] SENSITIVE CENTAUR CHEMILUMINESCENCE METHOD. Name Value Range Interpretation Description Data Sup porting Code Source(s) Document(s ) Troponin 0.37 [place] I.cardiac ng/mL Hospital [Mass/volume ] in Serum or Plasma ID Date Data Source [id number] 11/03/2019 [facility] Range Interpretation Description Data Sup porting Code Source(s) Document(s ) Creatine 163 U/L [place] kinase Hospital [Enzymatic activity/volu me] in Serum or Plasma ID Date Data Source [id number] 11/03/2019 [facility] Name Value Range Interpretation Description Data Sup porting Code Source(s) Document(s ) Aspartate 29 U/L [place] aminotransferase [place] [Enzymatic Hospital activity/volume] in Serum or Plasma ID Date Data Source [id number] 11/03/2019 10:29:00 AM EDT Name Value Range Interpretation Description Data Sup porting Code Source(s) Document(s ) Alanine 18 U/L [place] aminotransferase [place] [Enzymatic Hospital activity/volume] in Serum or Plasma ID Date Data Source [id number] 11/03/2019 10:29:00 AM [facility] Name Value Range Interpretation Description Data Sup porting Code Source(s) Document(s ) Alkaline 104 U/L [place] phosphatase Hospital [Enzymatic activity/volume ] in Serum or Plasma ID Date Data Source [id number] 11/03/2019 10:29:00 AM [facility] Name Value Range Interpretation Description Data Sup porting Code Source(s) Document(s ) Bilirubin.t 0.8 mg/dL [facility] [Mass/volum e] in Serum or Plasma ID Date Data Source [id number] 11/03/2019 10:29:00 AM [facility] Value Range Interpretation Code Description Data Natali rce(s) Supporting Document(s ) Albumin/Glob 2.0 [place] ulin [Mass Hospital Ratio] in Serum or Plasma ID Date Data Source [id number] 11/03/2019 10:29:00 AM [facility] Name Value Range Interpretation Description Data Sup porting Code Source(s) Document(s ) Albumin 4.3 g/dL [place] [Mass/volume Hospital ] in Serum or Plasma ID Date Data Source [id number] 11/03/2019 [facility] Value Range Interpretation Description Data Sup porting Code Source(s) Document(s ) Protein 6.5 g/dL [place] [Mass/volume Hospital ] in Serum or Plasma ID Date Data Source [id number] 11/03/2019 [facility] Value Range Interpretation Description Data Sup porting Code Source(s) Document(s ) Calcium 7.5 mg/dL [place] [Mass/volume Hospital ] in Serum or Plasma ID Date Data Source [id number] 11/03/2019 10:29:00 AM [facility] Name Value Range Interpretation Code Description Data Natali rce(s) Supporting Document(s ) Urea 8.7 [place] nitrogen/Cre Hospital atinine [Mass Ratio] in Serum or Plasma ID Date Data Source [id number] 11/03/2019 10:29:00 AM [facility] NOTIFICATION AND READ BACK OF CRITICAL R ESULTS TO PC CARLOS INMAN AT 1118 ON 11/03/19 BY Tal Vela.REPORTED CRITICA L VALUES SHOULD BE INTERPRETED WITHIN CLINICAL CONTEXT. Name Value Range Interpretation Description Data Sup porting Code Source(s) Document(s ) Creatinine 8.2 mg/dL [place] [Mass/volume] Hospital in Serum or Plasma ID Date Data Source [id number] 11/03/2019 [facility] Value Range Interpretation Description Data Sup porting Code Source(s) Document(s ) Urea 71 mg/dL [place] nitrogen Hospital [Mass/volume ] in Serum or Plasma ID Date Data Source [id number] 11/03/2019 10:29:00 AM [facility] Name Value Range Interpretation Code Description Data Natali rce(s) Supporting Document(s ) Anion gap in 19 [place] Serum or [facility] Plasma ID Date Data Source [id number] 11/03/2019 10:29:00 AM EDT Name Value Range Interpretation Description Data Sup porting Code Source(s) Document(s ) Carbon 28 mmol/L [place] dioxide, Hospital total [Moles/volu me] in Serum or Plasma ID Date Data Source [id number] 11/03/2019 10:29:00 AM EDT Name Value Range Interpretation Description Data Sup porting Code Source(s) Document(s ) Chloride 96 mmol/L [place] [Moles/volum Hospital e] in Serum or Plasma ID Date Data Source [id number] 11/03/2019 10:29:00 AM EDT [facility] Name Value Range Interpretation Description Data Sup porting Code Source(s) Document(s ) Potassium 5.1 [place] [Moles/volume mmol/L Hospital ] in Serum or Plasma ID Date Data Source [id number] 11/03/2019 10:29:00 AM EDT Name Value Range Interpretation Description Data Sup porting Code Source(s) Document(s ) Sodium 138 mmol/L [place] [Moles/volu Hospital me] in Serum or Plasma ID Date Data Source [id number] 11/03/2019 10:29:00 AM EDT Name Value Range Interpretation Description Data Sup porting Code Source(s) Document(s ) Glucose 151 mg/dL [place] [Mass/volume Hospital ] in Serum or Plasma ID Date Data Source [id number] 11/03/2019 10:29[facility] THERAPEUTIC RANGES:UNFRACTIONATED HEPARI N THERAPY: 60-90 SECONDSARGATROBAN THERAPY: 49-99 SECONDS Name Value Range Interpretation Description Data Sup porting Code Source(s) Document(s ) aPTT in 33.8 s [place] Platelet poor Hospital plasma by Coagulation assay ID Date Data Source [id number] 11/03/2019 10:29:00 AM EDT THERAPEUTIC RANGE FOR STANDARD ORALANTIC OAGULANT THERAPY: 2.0-3.0THERAPEUTIC RANGE FOR HIGH DOSE ORALANTICOAGULANT THERAPY (MECHANICAL HEARTVALVE REPLACEMENT): 2.5-3.5 Name Value Range Interpretation Description Data Sup porting Code Source(s) Document(s ) INR in Platelet 1.3 [place] poor plasma by Hospital Coagulation assay ID Date Data Source [id number] 11/03/2019 10:29:00 AM EDT Name Value Range Interpretation Description Data Sup porting Code Source(s) Document(s ) PT panel - 15.1 s [place] Platelet poor [facility] plasma by Coagulation assay ID Date Data Source [id number] 11/03/2019 10:29:00 AM EDT Name Value Range Interpretation Code Description Data Supporting Source(s) Document(s ) NUCLEATED RBCS 0.0 % [place] (AUTO Hospital DIFF%)DIS ID Date Data Source [id number] 11/03/2019 10:29:00 AM EDT Name Value Range Interpretation Description Data Sup porting Code Source(s) Document(s ) Differential MANUAL [place] cell count Hospital method - Blood ID Date Data Source [id number] 11/03/2019 10:29:00 AM EDT Name Value Range Interpretation Code Description Data Natali rce(s) Supporting Document(s ) Cells 100 [facility] Total [#] in Blood ID Date Data Source [id number] 11/03/2019 [facility]T ESTIMATE DECREASED Name Value Range Interpretation Description Data Sup porting Code Source(s) Document(s ) PLATELET PRESENT [facility] Hospital ID Date Data Source [id number] 11/03/2019 10:29:00 AM EDT [facility] Value Range Interpretation Code Description Data Natali rce(s) Supporting Document(s ) MACROCYTOSIS OCC ID Date Data Source [id number] 11/03/2019 10:29:00 AM EDT Name Value Range Interpretation Description Data Sup porting Code Source(s) Document(s ) Basophils 0.15 [place] [#/volume] in 10*3/uL Hospital Blood by Manual count ID Date Data Source [id number] 11/03/2019 10:29:00 AM EDT [facility] Value Range Interpretation Description Data Sup porting Code Source(s) Document(s ) Eosinophils 0.38 [place] [#/volume] in 10*3/uL Hospital Blood by Manual count ID Date Data Source [id number] 11/03/2019 10:29:00 AM EDT [facility] Value Range Interpretation Description Data Sup porting Code Source(s) Document(s ) Monocytes 0.46 [place] [#/volume] in 10*3/uL Hospital Blood by Manual count ID Date Data Source [id number] 11/03/2019 10:29:00 AM EDT [facility] Value Range Interpretation Description Data Sup porting Code Source(s) Document(s ) Lymphocytes 0.61 [place] [#/volume] in 10*3/uL Hospital Blood by Manual count ID Date Data Source [id number] 11/03/2019 10:29:00 AM EDT [facility] Value Range Interpretation Description Data Sup porting Code Source(s) Document(s ) Neutrophils 6.00 [place] [#/volume] in 10*3/uL Hospital Blood by Manual count ID Date Data Source [id number] 11/03/2019 [facility] Name Value Range Interpretation Description Data Sup porting Code Source(s) Document(s ) Basophils/100 2 % [place] leukocytes in Hospital Blood by Manual count ID Date Data Source [id number] 10/25/2019 04:34:00 PM [facility] Paper Rewinder:ANDRZEJ SUNG Name Value Range Interpretation Description Data Sup porting Code Source(s) Document(s ) Glucose 87 mg/dL [place] [Mass/volume] Hospital in Capillary blood by Glucometer ID Date Data Source [id number] 10/25/2019 04:34:00 PM [facility] Paper Rewinder:ANDRZEJ SUNG Name Value Range Interpretation Description Data Sup porting Code Source(s) Document(s ) Glucose 87 mg/dL [place] [Mass/volume] Hospital in Capillary blood by Glucometer ID Date Data Source [id number] 10/25/2019 06:27:00 AM [facility] Name Value Range Interpretation Description Data Sup porting Code Source(s) Document(s ) Calcium 8.6 mg/dL [place] [Mass/volume Hospital ] in Serum or Plasma ID Date Data Source [id number] 10/25/2019 [facility] Name Value Range Interpretation Code Description Data Natali rce(s) Supporting Document(s ) Urea 7.5 [place] nitrogen/Cre Hospital atinine [Mass Ratio] in Serum or Plasma ID Date Data Source [id number] 10/25/2019 06:27:00 AM [facility] NOTIFICATION AND READ BACK OF CRITICAL R ESULTS TO GISELLE KURTZ RN 5I AT 0708 ON 10/25/19 BY DELROY IBARRA.REPORTED CRI TICAL VALUES SHOULD BE INTERPRETED WITHIN CLINICAL CONTEXT. Name Value Range Interpretation Description Data Sup porting Code Source(s) Document(s ) Creatinine 8.0 mg/dL [place] [Mass/volume] Hospital in Serum or Plasma ID Date Data Source [id number] 10/25/2019 06:27:00 AM EDT Name Value Range Interpretation Description Data Sup porting Code Source(s) Document(s ) Urea 60 mg/dL [place] nitrogen Hospital [Mass/volume ] in Serum or Plasma ID Date Data Source [id number] 10/25/2019 06:27:00 AM EDT Name Value Range Interpretation Code Description Data Natali rce(s) Supporting Document(s ) Anion gap in 17 [place] Serum or [facility] Plasma ID Date Data Source [id number] 10/25/2019 06:27:00 AM EDT Name Value Range Interpretation Description Data Sup porting Code Source(s) Document(s ) Carbon 27 mmol/L [place] dioxide, Hospital total [Moles/volu me] in Serum or Plasma ID Date Data Source [id number] 10/25/2019 06:27:00 AM EDT Name Value Range Interpretation Description Data Sup porting Code Source(s) Document(s ) Chloride 96 mmol/L [place] [Moles/volum Hospital e] in Serum or Plasma ID Date Data Source [id number] 10/25/2019 06:27:00 AM EDT SLIGHT HEMOLYSIS Name Value Range Interpretation Description Data Sup porting Code Source(s) Document(s ) Potassium 5.7 [place] [Moles/volume mmol/L Hospital ] in Serum or Plasma ID Date Data Source [id number] 10/25/2019 06:27:00 AM EDT Name Value Range Interpretation Description Data Sup porting Code Source(s) Document(s ) Sodium 134 mmol/L [place] [Moles/volu Hospital wi] in Serum or Plasma ID Date Data Source [id number] 10/25/2019 06:27:00 AM EDT [facility] Value Range Interpretation Description Data Sup porting Code Source(s) Document(s ) Glucose 89 mg/dL [place] [Mass/volume Hospital ] in Serum or Plasma ID Date Data Source [id number] 10/25/2019 06:27:00 AM EDT [facility] Value Range Interpretation Description Data Sup porting Code Source(s) Document(s ) Platelet mean 12.2 fL [facility] [Entitic volume] in Blood by Automated count ID Date Data Source [id number] 10/25/2019 06:27:00 AM EDT [facility] Value Range Interpretation Description Data Sup porting Code Source(s) Document(s ) Platelets 57 [place] [#/volume] in 10*3/uL Hospital Blood by Automated count ID Date Data Source [id number] 10/[facility] Interpretation Description Data Sup porting Code Source(s) Document(s ) Erythrocyte 12.7 % [facility] Hospital width [Ratio] by Automated count ID Date Data Source [id number] 10/25/2019 06:27:00 AM EDT Name Value Range Interpretation Description Data Sup porting Code Source(s) Document(s ) Erythrocyte mean 34.1 [place] corpuscular g/dL Hospital hemoglobin concentration [Mass/volume] by Automated count ID Date Data Source [id number] 10/25/2019 06:27:00 AM EDT [facility] Value Range Interpretation Description Data Sup porting Code Source(s) Document(s ) [facility] [Entitic mass] by Automated count ID Date Data Source [id number] 10/25/2019 06:27:00 AM EDT Name Value Range Interpretation Description Data Sup porting Code Source(s) Document(s ) Erythrocyte 92.9 fL [place] mean Hospital corpuscular volume [Entitic volume] by Automated count ID Date Data Source [id number] 10/25/2019 06:27:00 AM EDT [facility] Value Range Interpretation Description Data Sup porting Code Source(s) Document(s ) Hematocrit 46.1 % [place] [Volume Hospital Fraction] of Blood by Automated count ID Date Data Source [id number] 10/25/2019 06:27:00 AM EDT [facility] Value Range Interpretation Description Data Sup porting Code Source(s) Document(s ) Hemoglobin 15.7 g/dL [place] [Mass/volume] Hospital in Blood ID Date Data Source [id number] 10/25/2019 [facility] Interpretation Description Data Sup porting Code Source(s) Document(s ) Erythrocytes 4.96 [place] [#/volume] in 10*6/uL Hospital Blood by Automated count ID Date Data Source [id number] 10/25[facility] Value Range Interpretation Description Data Sup porting Code Source(s) Document(s ) Leukocytes 3.9 [place] [#/volume] in 10*3/uL Hospital Blood by Automated count ID Date Data Source [id number] 10/24/2019 [facility] THERAPEUTIC RANGE FOR STANDARD ORALANTIC OAGULANT THERAPY: 2.0-3.0THERAPEUTIC RANGE FOR HIGH DOSE ORALANTICOAGULANT THERAPY (MECHANICAL HEARTVALVE REPLACEMENT): 2.5-3.5 Name Value Range Interpretation Description Data Sup porting Code Source(s) Document(s ) INR in Platelet 1.0 [place] poor plasma by Hospital Coagulation assay ID Date Data Source [id number] 10/24/2019 02:15:00 PM EDT Name Value Range Interpretation Description Data Sup porting Code Source(s) Document(s ) PT panel - 11.9 s [place] Platelet poor [facility] plasma by Coagulation assay ID Date Data Source [id number] 10/24/2019 [facility]39[facility] Name Value Range Interpretation Description Data Sup porting Code Source(s) Document(s ) Hepatitis C NON-REACT [place] virus [facility] [Presence] in Serum ID Date Data Source [id number] 10/24/2019 [facility]39[facility] Name Value Range Interpretation Description Data Sup porting Code Source(s) Document(s ) Hepatitis B NON-REACT [place] virus core [facility] [Presence] in Serum ID Date Data Source [id number] 10/24/2019 11:39:00 AM [facility] Name Value Range Interpretation Description Data Sup porting Code Source(s) Document(s ) Hepatitis A NON-REACT [place] virus IgM Ab [facility] [Presence] in Serum ID Date Data Source [id number] 10/24/2019 [facility]39[facility] Name Value Range Interpretation Description Data Sup porting Code Source(s) Document(s ) Hepatitis C NON-REACT [place] virus [facility] [Presence] in Serum ID Date Data Source [id number] 10/24/2019 [facility] Name Value Range Interpretation Description Data Sup porting Code Source(s) Document(s ) Hepatitis B NON-REACT [place] virus core Ab [facility] [Presence] in Serum ID Date Data Source [id number] 10/24/2019 11:39:00 AM EDT Name Value Range Interpretation Description Data Sup porting Code Source(s) Document(s ) Hepatitis A NON-REACT [place] virus IgM Ab [facility] [Presence] in Serum ID Date Data Source [id number] 10/24/2019 11:39:00 AM EDT Name Value Range Interpretation Description Data Sup porting Code Source(s) Document(s ) Hepatitis A REACTIVE [place] virus Ab [facility] [Presence] in Serum ID Date Data Source [id number] 10/24/2019 11:39:00 AM EDT Name Value Range Interpretation Description Data Sup porting Code Source(s) Document(s ) Hepatitis B NON-REACT [place] virus surface [facility] Ab [Presence] in Serum ID Date Data Source [id number] 10/24/2019 11:39:00 AM EDT Name Value Range Interpretation Description Data Sup porting Code Source(s) Document(s ) Hepatitis B NON-REACT [place] virus surface [facility] Ag [Presence] in Serum ID Date Data Source [id number] 10/24/2019 11:39:00 AM EDT Name Value Range Interpretation Description Data Sup porting Code Source(s) Document(s ) Aspartate 33 U/L [place] amin[facility] [place] [Enzymatic Hospital activity/volume] in Serum or Plasma ID Date Data Source [id number] 10/24/2019 11:39:00 AM EDT Name Value Range Interpretation Description Data Sup porting Code Source(s) Document(s ) Alanine 17 U/L [place] amin[facility] [place] [Enzymatic Hospital activity/volume] in Serum or Plasma ID Date Data Source [id number] 10/24/2019 11:39:00 AM EDT Name Value Range Interpretation Description Data Sup porting Code Source(s) Document(s ) Alkaline 112 U/L [place] phosphatase Hospital [Enzymatic activity/volume ] in Serum or Plasma ID Date Data Source [id number] 10/24/2019 11:39:00 AM EDT Name Value Range Interpretation Description Data Sup porting Code Source(s) Document(s ) Bilirubin.t 0.6 mg/dL [facility] [Mass/volum e] in Serum or Plasma ID Date Data Source [id number] 10/24/2019 [facility] Name Value Range Interpretation Code Description Data Natali rce(s) Supporting Document(s ) [facility] in Serum or Plasma ID Date Data Source [id number] 10/24/2019 [facility]:39[facility] Name Value Range Interpretation Description Data Sup porting Code Source(s) Document(s ) Albumin 4.6 g/dL [place] [Mass/volume Hospital ] in Serum or Plasma ID Date Data Source [id number] 10/24/2019 11:39:00 AM EDT Name Value Range Interpretation Description Data Sup porting Code Source(s) Document(s ) Protein 7.1 g/dL [place] [Mass/volume Hospital ] in Serum or Plasma ID Date Data Source [id number] 10/24/2019 11:39:00 AM EDT Name Value Range Interpretation Code Description Data Supporting Source(s) Document(s ) NUCLEATED RBCS 0.0 % [place] (AUTO Hospital DIFF%)DIS ID Date Data Source [id number] 10/24/2019 [facility] Name Value Range Interpretation Description Data Sup porting Code Source(s) Document(s ) Differential MANUAL [place] cell count [facility] method - Blood ID Date Data Source [id number] 10/24/2019 11:39:00 AM EDT Name Value Range Interpretation Code Description Data Natali rce(s) Supporting Document(s ) Cells 100 [facility] Total [#] in Blood ID Date Data Source [id number] 10/24/2019 [facility]:39[facility] PLT ESTIMATE DECREASED Name Value Range Interpretation Description Data Sup porting Code Source(s) Document(s ) PLATELET PRESENT [facility] Hospital ID Date Data Source [id number] 10/24/2019 [facility]:39[facility] Name Value Range Interpretation Code Description Data Natali rce(s) Supporting Document(s ) TARGET CELLS [facility] ID Date Data Source [id number] 10/24/2019 11:39:00 AM [facility] Name Value Range Interpretation Code Description Data Supporting Source(s) Document(s ) POLYCHROMASIA [facility] ID Date Data Source [id number] 10/24/2019 [facility]:39[facility] Name Value Range Interpretation Description Data Sup porting Code Source(s) Document(s ) Eosinophils 0.21 [place] [#/volume] in 10*3/uL Hospital Blood by Manual count ID Date Data Source [id number] 10/24/2019 [facility]:39[facility] Name Value Range Interpretation Description Data Sup porting Code Source(s) Document(s ) Monocytes 0.42 [place] [#/volume] in 10*3/uL Hospital Blood by Manual count ID Date Data Source [id number] 10/24/2019 11:39:00 AM EDT Name Value Range Interpretation Description Data Sup porting Code Source(s) Document(s ) Lymphocytes 0.62 [place] [#/volume] in 10*3/uL Hospital Blood by Manual count ID Date Data Source [id number] 10/24/2019 11:39:00 AM EDT Name Value Range Interpretation Description Data Sup porting Code Source(s) Document(s ) Neutrophils 3.95 [place] [#/volume] in 10*3/uL Hospital Blood by Manual count ID Date Data Source [id number] 10/24/2019 11:39:00 AM EDT [facility] Value Range Interpretation Description Data Sup porting Code Source(s) Document(s ) Eosinophils/100 4 % [place] leukocytes in Hospital Blood by Manual count ID Date Data Source [id number] 10/24/2019 11:39:00 AM EDT [facility] Value Range Interpretation Description Data Sup porting Code Source(s) Document(s ) Monocytes/100 8 % [place] leukocytes in Hospital Blood by Manual count ID Date Data Source [id number] 10/24/2019 11:39:00 AM EDT [facility] Value Range Interpretation Description Data Sup porting Code Source(s) Document(s ) Lymphocytes/100 12 % [place] leukocytes in Hospital Blood by Manual count ID Date Data Source [id number] 10/24/2019 11:39:00 AM EDT [facility] Value Range Interpretation Description Data Sup porting Code Source(s) Document(s ) Neutrophils/100 76 % [place] leukocytes in Hospital Blood by Manual count ID Date Data Source [id number] 10/24/2019 11:39:00 AM EDT Name Value Range Interpretation Description Data Sup porting Code Source(s) Document(s ) Hepatitis A REACTIVE [facility] Ab Hospital [Presence] in Serum ID Date Data Source [id number] 10/24/2019 11:39:00 AM EDT Name Value Range Interpretation Description Data Sup porting Code Source(s) Document(s ) Hepatitis B NON-REACT [place] virus surface [facility] [Presence] in Serum ID Date Data Source [id number] 10/24/2019 11:39:00 AM EDT Name Value Range Interpretation Description Data Sup porting Code Source(s) Document(s ) Hepatitis B NON-REACT [facility] surface [facility] Hospital Ag [Presence] in Serum ID Date Data Source [id number] 10/24/2019 11:39:00 AM EDT Name Value Range Interpretation Code Description Data Natali rce(s) Supporting Document(s ) TARGET CELLS [facility] ID Date Data Source [id number] 10/24/2019 11:39:00 AM EDT Name Value Range Interpretation Code Description Data Supporting Source(s) Document(s ) POLYCHROMASIA [facility] Procedure Social History Code Duration Value Status Description Data Source(s ) Smoking 11/03/2019 Never smoked completed Never smoked [facility] 10:[facility] AM EDT tobacco tobacco (finding) [facility] (finding) Smoking 10/24/2019 Ex-smoker completed Ex-smoker (finding) [place] 05:58:00 PM EDT (finding) Hospital Vital Signs ID Date Data Source UNK Name Value Range Interpretation Code Description Data Source(s) Diastolic blood 62 mm[Hg] 62 mm[Hg] [facility] Systolic blood 119 mm[Hg] 119 mm[Hg] [facility] Respiratory rate 24 /min 24 /min [facility] Heart rate 60 /min 60 /min Body temperature 36.71305 36.98382 [facility] Body temperature 98.2 [degF] 98.2 [degF] Body mass index 24.0 kg/m2 24.0 kg/m2 [facility] (BMI) [Ratio] Hospital Body weight 165.35 165.35 [lb_av] [facility] [lb_av] [facility] Diastolic blood 52 mm[Hg] 52 mm[Hg] [facility] pressure Hospital Systolic blood 118 mm[Hg] 118 mm[Hg] [facility] pressure Hospital Respiratory rate 20 /min 20 /min [facility] Heart rate 66 /min 66 /min Body temperature 36.04891 36.49871 [facility] Body temperature 97.0 [degF] 97.0 [degF] Body mass index 20.0 kg/m2 20.0 kg/m2 [facility] (BMI) [Ratio] Hospital Body weight 138.89 138.89 [lb_av] [facility] [lb_av] [facility]
[2020-02-04] MEDS: TROPICAMIDE 1% OPHTH SOLN 15 ML BOTTLE ONE ×3 (09:15→09:25)
[2020-02-04] MEDS: PHENYLEPHRINE 2.5% OPHTH SOLN 15 ML BOTTLE ONE ×3 (09:15→09:25)
[2020-02-04] MEDS: CIPROFLOXACIN 0.3% EYE DROPS 5 ML BOTTLE ONE ×3 (09:15→09:25)
[2020-02-04] MEDS: CYCLOPENTOLATE 2% OPHTH SOLN 2 ML BOTTLE ONE ×3 (09:15→09:25)
[2020-02-04] MEDS ORDERED: ONDANSETRON 4 MG/2 ML VIAL ONE (09:50)
[2020-02-04] MEDS ORDERED: MIDAZOLAM HCL 2 MG/2 ML SINGLE DOSE VIAL ONE (09:50)
[2020-02-04] MEDS ORDERED: PHENYLEPHRINE/KETOROLAC 4 ML VIAL IO ONE (10:04)
[2020-02-04] MEDS ORDERED: BSS (NA/CA/MG/K) BALANCED SALT SOLUTION OPHTH SOLN 15 ML BOTTLE ONE (10:04)
[2020-02-04] MEDS ORDERED: TETRACAINE 0.5% OPHTH SOLN 2 ML BOTTLE ONE (10:04)
[2020-02-04] MEDS ORDERED: LIDOCAINE 1% P/F 10 MG/ML VIAL ONE (10:04)
[2020-02-04] MEDS ORDERED: CARBACHOL 0.01% INTRA-OCULAR 1.5 ML VIAL ONE (10:05)
[2020-02-04] MEDS ORDERED: NEO/POLYMYX B SULF/DEXAMETH OPHTHALMIC 5ML BOTTLE ONE (10:05)
[2020-02-04] MEDS ORDERED: FLUMAZENIL 0.5 MG/5 ML VIAL ONE (10:27)
[2020-02-04] MEDS ORDERED: PROPOFOL 20 ML ONE (10:33)
--- NOTE | 2020-02-04 11:19 | OP ---
DATE OF OPERATION: 02/04/2020 OPERATIVE PROCEDURE: Lens Phacoemulsification with Posterior Chamber Intraocular Lens Placement Left Eye PREOPERATIVE DIAGNOSIS: Visually Significant Cataract of Left Eye POSTOPERATIVE DIAGNOSIS: Visually Significant Cataract of Left Eye SURGEON: Michael Katz M.D. ANESTHESIA: MAC ANESTHESIOLOGIST: PROCEDURE: The patient was brought to the operating room and placed under monitored anesthesia care by Anesthesia. A drop of Tetracaine was then placed over the left eye. The patient was then prepped and draped in the usual sterile manner. A speculum was then placed over the left eye. The eye was then well irrigated with copious amounts of BSS (balanced salt solution). The operating microscope was then moved into position. A paracentesis was performed using a 15 degree blade. At this point 0.5 mL of 1% preservative-free lidocaine was injected into the anterior chamber. Amvisc plus was then injected into the anterior chamber. A clear corneal incision was then formed using a 2.2 mm keratome. A capsulorrhexis was then performed in a continuous circular fashion beginning with a cystotome, completed with an Utratas forceps. Hydrodissection was then performed using BSS on a cannula. The phaco probe was then introduced through the corneal wound and the cataract was removed using the phaco chop technique. Approximately 3 seconds of absolute phaco time was used. The remaining cortex was then removed using irrigation and aspiration with an I/A probe. The capsule was then filled with regular Amvisc and the capsule was noted to be intact. A previously selected foldable posterior chamber intraocular lens was then injected into the capsule through the corneal wound using a lens injector. It was then dialed into position using a [place] hook. The Amvisc was then removed using irrigation and aspiration. Miostat was then injected through the paracentesis to constrict the pupil. The paracentesis and corneal wound were then hydrated and noted to be water tight. A drop of Maxitrol was then placed over the eye. The speculum was removed and clear shield was taped over the eye. The patient tolerated the procedure well and there were no surgical complications. The patient was asked to follow up in my office the next day. MICHAEL KATZ M.D. [facility]/[id number]
[2020-02-04 12:38] VITALS: TEMP 97.9
[2020-02-04 12:41] VITALS: BP 109/56; PULSE 62
== END 2020-02-04 12:25 | disposition home or self-care (01) ==
LOC: FASU 08:25
PROVIDERS: ATTEND Ophthalmology
PROC: 08RK3JZ Replacement of Left Lens with Synthetic Substitute, Percutaneous Approach (ICD-10-PCS; principal; 2020-02-04 10:34)
DX: H26.8 Other specified cataract (principal)
CPT/HCPCS: 82962; 94760; J1097